=== PATIENT | female | born 1990 ===

== ENCOUNTER 2024-07-31 17:34 | Outpatient (CLI) | payer OTHER | END 2024-07-31 18:44 | disposition home or self-care (01) | LOC: NST 17:34 | PROVIDERS: ATTEND Obstetrics & Gynecology Maternal & Fetal Medicine | DX: Z34.83 Encounter for supervision of other normal pregnancy, third trimester (principal) ==

== ENCOUNTER 2024-08-01 13:45 | Inpatient (IN) | payer OTHER ==
[~2024-08-01] VITALS: Ht 152.4 cm; Wt 65.8 kg
[2024-08-06] MEDS ORDERED: RINGERS SOLUTION,LACTATED 1,000 ML IV SCH (16:00)
[2024-08-06] MEDS ORDERED: MORPHINE SULFATE 4 MG/ML CARTRIDGE IV PRN (16:00)
[2024-08-06] MEDS ORDERED: MISOPROSTOL 25 MCG TABLET VAG ONE (16:00)
[2024-08-06 16:15] VITALS: BP 135/87
[2024-08-06] MEDS ORDERED: PRENATABS FA T1 EACH PO (17:02)
[2024-08-06 17:26] LABS: BASO % 0.3 % (0.1-1.2); EOS # 0.03 (0.04-0.54); EOS % 0.5 % (0.7-7.0); HEMOGLOBIN 11.7 g/dL (11.2-15.7); LYMPH # 0.93 (1.18-3.74); MEAN CORPUSCULAR HEMOGLOBIN 33.2 pg (25.6-32.2); NEUT # 4.85 (1.56-6.13); NEUT % 72.7 % (34.0-71.1); PLATELET COUNT 136 K/uL (163-369); RED BLOOD COUNT 3.52 M/uL (3.93-5.22); RED CELL DISTRIBUTION WIDTH 14.8 % (11.6-14.4)
[2024-08-06 17:28] LABS: PH,URINE 6.5 (5.0-8.0); URINE APPEARANCE Cloudy; URINE BILIRRUBIN Negative (NEGATIVE); URINE BLOOD Large; URINE COLOR Yellow; URINE GLUCOSE Negative (NEGATIVE); URINE KETONE Negative (NEGATIVE); URINE LEUKOCYTE Moderate; URINE NITRATE Negative; URINE PROTEIN 30 (NEGATIVE); URINE UROBILINOGEN 0.2 E.U./dl
[2024-08-06 17:30] LABS: URINE EPITHELIAL CELLS 33.4 uL (0.0-38.8); URINE RBC 62.7 uL (0.0-20.8); URINE WBC 32.9 uL (0.0-23.2)
[2024-08-06 17:55] LABS: INR < 0.93; PARTIAL THROMBOPLASTIN TIME 25.2 SECONDS (22.0-34.0)
[2024-08-06 18:17] LABS: URINE CAST 0.29 uL (0.0-1.40); URINE CRYSTALS FEW /HPF
[2024-08-06 18:18] LABS: URINE MUCUS SCANT; URINE YEAST FEW /hpf
[2024-08-06 19:16] VITALS: BP 139/72
[2024-08-06 19:24] LABS: POTASSIUM 4.08 mEq/L (3.5-5.1)
[2024-08-06 19:31] LABS: ALBUMIN 2.9 gm/dL (3.4-5.0); BILIRUBIN TOTAL 0.25 mg/dL (0.3-1.2); CALCIUM 8.8 mg/dL (8.5-10.1); CREATININE SERUM 0.41 mg/dL (0.55-1.02); GFR 175.53; GLOBULINA 2.9 G/DL (2.4-3.5); TOTAL PROTEIN 5.8 gm/dL (6.4-8.2)
[2024-08-06] MEDS ORDERED: MISOPROSTOL 25 MCG TABLET ONE (20:19)
[2024-08-06 23:41] VITALS: BP 136/76
[2024-08-07] VITALS (9 sets, daily range): BP systolic 122–145; BP diastolic 74–88; O2SAT 99
[2024-08-07] MEDS ORDERED: OXYTOCIN 20 UNITS/500ML RL PIGGYBAG IV ONE (06:04)
[2024-08-07] MEDS ORDERED: OXYTOCIN 500 ML IV ONE (07:00)
[2024-08-07] MEDS ORDERED: FAMOTIDINE/PF 20 MG/2 ML VIAL ONE (08:08)
[2024-08-07] MEDS ORDERED: FAMOTIDINE/PF 20 MG in 0.9 % SODIUM CHLORIDE 8 ML IV PUSH PRN (08:15)
[2024-08-07] MEDS ORDERED: LIDOCAINE HCL 1% 10ML VIAL ONE (12:18)
[2024-08-07] MEDS ORDERED: CHLORHEXIDINE GLUCONATE 120 ML BOTTLE TOP ONE ×2 (12:18→13:00)
[2024-08-07] MEDS ORDERED: OXYTOCIN 20 UNITS/1000ML RL PIGGYBAG IV ONE (12:18)
[2024-08-07] MEDS ORDERED: ERYTHROMYCIN BASE OPHT 1GM EACH TUBE OP ONE ×2 (12:18→13:30)
[2024-08-07] MEDS ORDERED: IBUprofen 400 MG TABLET PO PRN (13:00)
[2024-08-07] MEDS ORDERED: OXYTOCIN 1,000 ML IV SCH (13:00)
[2024-08-08 00:38] VITALS: BP 138/88
[2024-08-08 05:48] VITALS: BP 140/84
[2024-08-08 06:15] LABS: BASO % 0.3 % (0.1-1.2); EOS # 0.04 (0.04-0.54); EOS % 0.4 % (0.7-7.0); HEMOGLOBIN 11.3 g/dL (11.2-15.7); LYMPH # 0.97 (1.18-3.74); LYMPH % 9.5 % (19.3-53.1); MEAN CORPUSCULAR HEMOGLOBIN 32.8 pg (25.6-32.2); MONO # 0.94 (0.24-0.82); MONO % 9.2 % (4.7-12.5); NEUT # 8.14 (1.56-6.13); RED BLOOD COUNT 3.44 M/uL (3.93-5.22); RED CELL DISTRIBUTION WIDTH 14.7 % (11.6-14.4)
[2024-08-08 06:50] LABS: PLATELET COUNT 115 K/uL (163-369)
[2024-08-08 08:36] VITALS: BP 130/80; O2SAT 98
[2024-08-08 13:19] VITALS: BP 100/67; O2SAT 97
[2024-08-08 16:00] VITALS: BP 142/95; O2SAT 99
[2024-08-08 20:00] VITALS: BP 143/88
[2024-08-09 01:28] VITALS: BP 138/91
[2024-08-09] MEDS ORDERED: LABETALOL HCL 100 MG TABLET PO SCH (09:00)
[2024-08-09] MEDS ORDERED: LABETALOL HCL 200 MG TABLET PO SCH (09:00)
[2024-08-09 09:19] VITALS: BP 155/85
[2024-08-09 09:26] LABS: BASO % 0.2 % (0.1-1.2); EOS # 0.07 (0.04-0.54); EOS % 0.8 % (0.7-7.0); HEMATOCRIT 36.4 % (34.1-44.9); HEMOGLOBIN 11.8 g/dL (11.2-15.7); LYMPH # 0.94 (1.18-3.74); LYMPH % 10.1 % (19.3-53.1); MEAN CORPUSCULAR HEMOGLOBIN 31.8 pg (25.6-32.2); MONO # 0.64 (0.24-0.82); MONO % 6.9 % (4.7-12.5); NEUT # 7.59 (1.56-6.13); NEUT % 81.5 % (34.0-71.1); RED BLOOD COUNT 3.71 M/uL (3.93-5.22); RED CELL DISTRIBUTION WIDTH 14.9 % (11.6-14.4)
[2024-08-09 09:32] LABS: PLATELET COUNT 129 K/uL (163-369)
[2024-08-09 10:41] LABS: ALBUMIN 2.8 gm/dL (3.4-5.0); BILIRUBIN TOTAL 0.34 mg/dL (0.3-1.2); CALCIUM 8.8 mg/dL (8.5-10.1); CREATININE SERUM 0.41 mg/dL (0.55-1.02); GFR 175.53; POTASSIUM 3.61 mEq/L (3.5-5.1); TOTAL PROTEIN 5.8 gm/dL (6.4-8.2)
[2024-08-09 13:33] VITALS: BP 144/83; O2SAT 98
[2024-08-09 16:45] VITALS: BP 154/90
[2024-08-10] VITALS: BP 130/78
[2024-08-10 09:18] VITALS: BP 132/75
[2024-08-10 14:45] VITALS: BP 135/85
[2024-08-10 17:10] VITALS: BP 119/73
== END 2024-08-10 16:18 | disposition home or self-care (01) | DRG 807 ==
LOC: EDUNIT# 13:45 → LDR 08-06 15:53 → OB/GYN 08-07 13:17
PROVIDERS: Obstetrics & Gynecology; Obstetrics & Gynecology Gynecology; ADMIT Obstetrics & Gynecology Maternal & Fetal Medicine; ATTEND Obstetrics & Gynecology Maternal & Fetal Medicine
PROC: 3E0P7VZ Introduction of Hormone into Female Reproductive, Via Natural or Artificial Opening (ICD-10-PCS; 2024-08-06)
PROC: 4A1HXCZ Monitoring of Products of Conception, Cardiac Rate, External Approach (ICD-10-PCS; 2024-08-06)
PROC: 10E0XZZ Delivery of Products of Conception, External Approach (ICD-10-PCS; principal; 2024-08-07)
PROC: 0HQ9XZZ Repair Perineum Skin, External Approach (ICD-10-PCS; 2024-08-07)
PROC: 3E033VJ Introduction of Other Hormone into Peripheral Vein, Percutaneous Approach (ICD-10-PCS; 2024-08-07)
DX: O70.0 First degree perineal laceration during delivery (principal); Z37.0 Single live birth; Z3A.39 39 weeks gestation of pregnancy

== ENCOUNTER → 2024-08-03 | Outpatient (CLI) | payer OTHER ==
[~2024-08-03] MED LIST: PRENATABS FA T1 EACH PO
== END | disposition home or self-care (01) ==
LOC: MRI 12:53 → NST 12:53
PROVIDERS: ATTEND Obstetrics & Gynecology Maternal & Fetal Medicine
DX: Z34.83 Encounter for supervision of other normal pregnancy, third trimester (principal)